=== PATIENT | male | born 1985 | race Caucasian/White ===

== ENCOUNTER 2018-05-21 16:16 | Emergency (ER) | payer OTHER ==
[~2018-05-21] VITALS: Ht 182.9 cm; Wt 85.8 kg
[~2018-05-21 16:16] MED LIST: ACETAMINOPHEN-1 EAC1 PO; ADDERALL 30 MG30 MG PO; ADDERALL XR 3030 MG PO; ANUSOL-HC25 MG RECTAL; BACTRIM DS TAB1 EACH PO; BENTYL 10 MG CA10 M1 PO; BENTYL 20 MG TA20 M1 PO; CARAFATE 1 GM TA1 G1 PO; CITRATE OF MAG296 ML PO; CLEOCIN HCL300 MG PO; COLCHICINE0.6 MG PO; CYMBALTA60 MG PO; ELIMITE60 GM TP; GABAPENTIN 100100 MG PO; HYDROCODONE-AP1 EAC6 PO; HYDROCODONE-APA1 TA1 PO; HYDROCODONE-IB1 EACH PO; HYDROCODONE-IBU1 TAB PO; IBUPROFEN 600600 M1 PO; IBUPROFEN 800800 M1 PO; IBUPROFEN 800800 MG PO; INDOMETHACIN 2525 MG PO; INDOMETHACIN 5050 M1 PO; KETOCONAZOLE60 GM TP; NOHOMEMEDICATIONS; NORCO 5-325 TA1 EAC1 PO; NORCO 5-325 TA1 EACH PO; ONDANSETRON HCL4 M2 PO; OXYCODONE HCL 55 MG PO; OXYCODONE HCL E10 MG PO; OXYCODONE HCL5 M1 PO; PENICILLIN V P500 MG PO; PENICILLIN VK250 MG PO; PENICILLIN VK500 MG PO; PERCOCET 5-3251 EACH PO; PHENERGAN 25 MG25 M1 PO; PHENERGAN 25 MG25 MG PO; PHENERGAN50 MG RC; PRILOSEC 20 MG20 MG PO; PROMETHAZINE12.5 M1 PO; PROTONIX40 M1 PO; PROTONIX40 M2 PO; PROTONIX40 MG PO; ROXICODONE5 M1 PO; SKELAXIN 800 M800 M1 PO; VICOPROFEN 2001 EAC1 PO; VICOPROFEN 2001 EACH PO; WELLBUTRIN 75 M75 M1 PO; ZOFRAN ODT4 MG DISSOLVE; ZOFRAN ODT4 MG PO; ZOFRAN4 MG PO
[2018-05-21 16:18] VITALS: BP 146/86
[2018-05-21] MEDS ORDERED: ONDANSETRON HCL4 M2 PO (16:20)
[2018-06-07] MEDS ORDERED: CYMBALTA60 MG PO (16:33)
== END 2018-05-21 16:41 | disposition left against medical advice (07) ==
LOC: M.ERS 16:16
DX: R10.13 Epigastric pain (principal); G89.29 Other chronic pain; F17.210 Nicotine dependence, cigarettes, uncomplicated; Z88.6 Allergy status to analgesic agent; Z88.8 Allergy status to other drugs, medicaments and biological substances; Z87.442 Personal history of urinary calculi; Z90.49 Acquired absence of other specified parts of digestive tract; Z86.19 Personal history of other infectious and parasitic diseases

== ENCOUNTER 2018-06-02 13:43 | Emergency (ER) | payer OTHER ==
[~2018-06-02] VITALS: Ht 170.2 cm; Wt 68.0 kg
[2018-06-02 14:45] VITALS: BP 132/80
[2018-06-07] MEDS ORDERED: CYMBALTA60 MG PO (16:33)
== END 2018-06-02 14:49 | disposition home or self-care (01) ==
LOC: M.ERS 13:43
DX: G89.29 Other chronic pain (principal); R10.9 Unspecified abdominal pain; F17.210 Nicotine dependence, cigarettes, uncomplicated; Z87.442 Personal history of urinary calculi; Z90.49 Acquired absence of other specified parts of digestive tract; Z86.19 Personal history of other infectious and parasitic diseases; Z88.6 Allergy status to analgesic agent; Z88.8 Allergy status to other drugs, medicaments and biological substances

== ENCOUNTER 2018-06-03 02:49 | Emergency (ER) | payer OTHER ==
[~2018-06-03] VITALS: Ht 180.3 cm; Wt 88.5 kg
[2018-06-03 03:16] LABS: ABSOLUTE BASOPHILS 0.1 thou/uL (0.0-0.2); ABSOLUTE EOSINOPHILS 0.3 thou/uL (0.0-0.7); ABSOLUTE LYMPHOCYTES 1.7 thou/uL (0.8-5.3); ABSOLUTE MONOCYTES 0.9 thou/uL (0.0-1.2); ABSOLUTE NEUTROPHILS 3.8 thou/uL (1.6-8.1); BASOPHILS 0.8 %; EOSINOPHILS 4.2 %; HEMATOCRIT 34.1 % (42.0-52.0); HEMOGLOBIN 11.3 gm/dL (14.0-18.0); LYMPHOCYTES 25.8 %; MCH 28.2 pg (26.0-34.0); MCV 85.5 fL (80.0-100.0); MONOCYTES 13.1 %; MPV 7.3 fl. (7.2-11.1); NUCLEATED RBCS 0 /100WBC; PLATELET COUNT* 238 thou/uL (150-400); POLYS 56.1 %; RBC 3.99 mil/uL (4.50-6.00); RDW-CV 13.9 % (10.5-14.5); WBC 6.7 thou/uL (4.0-11.0)
[2018-06-03 03:21] LABS: CALCIUM 8.2 mg/dL (8.5-10.1); CREATININE 1.2 mg/dL (0.6-1.3); POTASSIUM 3.7 mmol/L (3.5-5.1)
[2018-06-03 03:25] LABS: ALBUMIN 3.3 g/dL (3.4-5.0); TOTAL BILIRUBIN 0.2 mg/dL (<0.1-1.0); TOTAL PROTEIN 6.3 g/dL (6.4-8.2)
[2018-06-03 03:30] LABS: URINE BILIRUBIN 1+ (Negative); URINE BLOOD NEGATIVE (Negative); URINE CLARITY CLEAR; URINE COLOR YELLOW; URINE GLUCOSE-RANDOM NEGATIVE (Negative); URINE KETONES NEGATIVE (Negative); URINE LEUKOCYTES-REFLEX NEGATIVE (Negative); URINE NITRITE-REFLEX NEGATIVE (Negative); URINE PROTEIN 1+ (Negative); URINE SPECIFIC GRAVITY >= 1.030 (1.005-1.030)
[2018-06-03 03:31] LABS: ICTOTEST (BILI CONFIRMATORY) Negative (Negative)
[2018-06-03 05:48] VITALS: BP 130/81
[2018-06-07] MEDS ORDERED: CYMBALTA60 MG PO (16:33)
== END 2018-06-03 05:48 | disposition home or self-care (01) ==
LOC: M.ERS 02:49
PROVIDERS: Family Medicine
DX: R11.2 Nausea with vomiting, unspecified (principal); R10.9 Unspecified abdominal pain; F17.210 Nicotine dependence, cigarettes, uncomplicated; Z88.6 Allergy status to analgesic agent; Z88.8 Allergy status to other drugs, medicaments and biological substances; Z87.442 Personal history of urinary calculi; Z90.49 Acquired absence of other specified parts of digestive tract; Z86.19 Personal history of other infectious and parasitic diseases